=== PATIENT | female | born 1955 | race Caucasian/White ===

== ENCOUNTER → 2020-11-14 | Outpatient (CLI) | payer MEDICARE, MEDICAID ==
[~2020-11-14] MED LIST: ACET-1008 PO; CELE200C PO; CETI-90 PO; DIPH-518 PO
[2020-11-14 16:53] LABS: BASOPHILS # (AUTO) 0.1 X10'3 (0-0.2); BASOPHILS % (AUTO) 0.7 % (0-1); EOSINOPHILS # (AUTO) 0.1 X10'3 (0-0.9); EOSINOPHILS % (AUTO) 0.8 % (0-6); LYMPHOCYTES # (AUTO) 1.2 X10'3 (1.1-4.8); LYMPHOCYTES % (AUTO) 13.6 % (21-51); MEAN CORPUSCULAR HEMOGLOBIN 30.6 PG (27.0-31.0); MEAN CORPUSCULAR HGB CONC 33.3 g/dL (33.0-36.5); MEAN CORPUSCULAR VOLUME 91.9 FL (78-98); MONOCYTES # (AUTO) 0.7 X10'3 (0-0.9); MONOCYTES % (AUTO) 8.6 % (2-12); NEUTROPHILS # (AUTO) 6.5 X10'3 (1.8-7.7); NEUTROPHILS % (AUTO) 76.3 % (42-75); PRE OP HEMATOCRIT 44.6 % (35.0-45.0); PRE OP HEMOGLOBIN 14.8 g/dL (12.0-16.0); PRE OP PLATELET COUNT 230 X10'3 (140-440); RED BLOOD COUNT 4.85 X10'6 (4.20-5.60)
[2020-11-14 16:55] LABS: PRE OP PROTIME 10.7 SECONDS (9.0-12.0)
[2020-11-14 16:56] LABS: ALBUMIN 4.2 G/DL (3.4-5.0); ALBUMIN/GLOBULIN RATIO 1.3 (1.1-1.5); ALKALINE PHOSPHATASE 66 IU/L (46-116); BLOOD UREA NITROGEN 22 MG/DL (7-18); BUN/CREATININE RATIO 17.7 (6.6-38.0); CALCIUM 9.1 MG/DL (8.5-10.1); CHLORIDE 106 MMOL/L (99-107); CREATININE 1.24 MG/DL (0.40-0.90); PRE OP ALT 19 U/L (30-65); PRE OP ANION GAP 10 (8-16); PRE OP AST 16 U/L (10-37); PRE OP BILIRUB, TOTAL 0.5 MG/DL (0.0-1.0); PRE OP GLUCOSE 93 MG/DL (70-104); PRE OP POTASSIUM 4.3 MMOL/L (3.4-5.1); PRE OP SODIUM 142 MMOL/L (135-145); TOTAL PROTEIN 7.4 G/DL (6.4-8.2); eGFR 43 ML/MIN
== END | disposition home or self-care (01) ==
LOC: PRE-OP 14:50 → EDSTATUS 11-23 09:45
PROVIDERS: ATTEND Podiatrist Foot & Ankle Surgery
DX: Z01.818 Encounter for other preprocedural examination (principal); I45.10 Unspecified right bundle-branch block; I44.4 Left anterior fascicular block; E66.9 Obesity, unspecified; Z72.0 Tobacco use
CPT/HCPCS: 36415; 80053; 85025; 85610; 85730; 87081; 93005